=== PATIENT | female | born 1995 | race Caucasian/White ===

== ENCOUNTER 2019-09-21 21:24 | Outpatient (CLI) | payer BC ==
[2019-09-21 22:25] LABS: HEMATOCRIT 45.4 % (37.0-47.0); HEMOGLOBIN 15.2 G/DL (12.0-16.0); MEAN CORPUSCULAR VOLUME 97 FL (80-99); PLATELET COUNT 165 K/UL (150-450); RED BLOOD COUNT 4.68 M/UL (4.20-5.40); RED CELL DISTRIBUTION WIDTH 11.1 % (11.6-14.8); WHITE BLOOD COUNT 2.9 K/UL (4.8-10.8)
[2019-09-21 22:39] LABS: ALANINE AMINOTRANSFERASE 27 U/L (12-78); ALBUMIN 4.3 G/DL (3.4-5.0); ALBUMIN/GLOBULIN RATIO 1.1 (1.0-2.7); ALKALINE PHOSPHATASE 73 U/L (46-116); ANION GAP 11 mmol/L (5-15); ASPARTATE AMINO TRANSFERASE 20 U/L (15-37); BILIRUBIN,TOTAL 0.2 MG/DL (0.2-1.0); BLOOD UREA NITROGEN 9 mg/dL (7-18); CALCIUM 8.9 MG/DL (8.5-10.1); CARBON DIOXIDE 27 MMOL/L (21-32); CHLORIDE 101 MMOL/L (98-107); CHOLESTEROL 156 MG/DL (< 200); CREATININE 0.7 MG/DL (0.55-1.30); HDL CHOLESTEROL 66 MG/DL (40-60); SODIUM 139 MMOL/L (136-145); TRIGLYCERIDES 86 MG/DL (30-150)
== END 2019-09-21 23:24 | disposition home or self-care (01) ==
LOC: LAB 21:24
DX: R53.81 Other malaise (principal); R55 Syncope and collapse
CPT/HCPCS: 36415; 80053; 80061; 84443; 85007; 85025; 85651; 86039; 86140; 86617; 86618; 86665; 86705; 86709; 86803; 87340

== ENCOUNTER 2019-09-22 08:12 | Outpatient (CLI) | payer BC ==
[2019-09-22 18:36] LABS: HEMATOCRIT 42.9 % (37.0-47.0); HEMOGLOBIN 14.5 G/DL (12.0-16.0); MEAN CORPUSCULAR VOLUME 97 FL (80-99); PLATELET COUNT 161 K/UL (150-450); RED BLOOD COUNT 4.44 M/UL (4.20-5.40); RED CELL DISTRIBUTION WIDTH 11.2 % (11.6-14.8); WHITE BLOOD COUNT 3.1 K/UL (4.8-10.8)
[2019-09-22 18:40] LABS: BASOPHILS % (AUTO) 0.6 % (0.0-2.0); EOSINOPHILS % (AUTO) 0.3 % (0.0-3.0); LYMPHOCYTES % (AUTO) 50.5 % (20.0-45.0); MONOCYTES % (AUTO) 8.9 % (1.0-10.0); NEUTROPHILS % (AUTO) 39.6 % (45.0-75.0)
== END 2019-09-22 10:12 | disposition home or self-care (01) ==
LOC: LAB 08:12 → EDSTATUS 09-23 08:48
DX: R53.81 Other malaise (principal); R55 Syncope and collapse
CPT/HCPCS: 36415; 85025